=== PATIENT | male | born 1930 | race Caucasian/White ===

== ENCOUNTER 2019-07-18 10:36 | Inpatient (IN) ==
[2019-07-23] MEDS ORDERED: polyethylene glycoL 3350 17 GM POWD.PACK PO PRN (16:41)
[2019-07-23] MEDS ORDERED: Ibuprofen 600 MG TABLET PO PRN (16:41)
[2019-07-23] MEDS ORDERED: Benzonatate 100 MG CAPSULE PO PRN (16:41)
[2019-07-23] MEDS ORDERED: Nitroglycerin 0.4 MG TAB.SUBL SL PRN (16:41)
[2019-07-23] MEDS ORDERED: Nystatin POWDER 30 GM BOTTLE TP PRN (16:41)
[2019-07-23 18:10] LABS: INR 2.4; Prothrombin Time 27.1 Seconds (9.4-12.1)
[2019-07-23] MEDS ORDERED: *HR* Warfarin 2.5 MG TABLET PO SCH (18:45)
[2019-07-23] MEDS: Furosemide 40 MG TABLET PO SCH (19:34)
[2019-07-23] MEDS: Saline Nasal Spray 44 ML BOTTLE NS SCH (21:30)
[2019-07-23] MEDS: Eucerin Cream 57 GM TUBE TP SCH (21:32)
[2019-07-23] MEDS: hydrALAZINE 25 MG TABLET PO SCH (23:10)
[2019-07-23] MEDS: Melatonin 3 MG TABLET PO PRN (23:28)
[2019-07-24 05:45] LABS: Basophils % 0.5 %; Eosinophils # 0.4 K/mcL (0.0-0.6); Eosinophils % 5.7 %; Hemoglobin 7.1 g/dL (12.9-16.9); Immature Granulocytes % 0.3 % (0-4); Mean Corpuscular HGB Conc 32.3 g/dL (31.6-35.5); Mean Corpuscular Hemoglobin 32.4 pg (28.0-33.3); Mean Corpuscular Volume 100.5 fL (83.0-100.0); Mean Platelet Volume 9.2 fL (9.4-12.4); Monocytes # 0.8 K/mcL (0.0-1.3); Neutrophils # 4.3 K/mcL (1.6-8.9); Nucleated Red Blood Cells 1.1 /100 WBC (0); Platelet Count 182 K/mcL (140-400); Red Blood Count 2.19 M/mcL (4.19-5.50); Red Cell Distribution Width 26.2 % (11.5-14.5); Segmented Neutrophils % 65.5 %; White Blood Count 6.5 K/mcL (4.3-11.1)
[2019-07-24 05:49] LABS: INR 2.4; Prothrombin Time 27.5 Seconds (9.4-12.1)
[2019-07-24 06:04] LABS: Albumin 3.7 g/dL (3.5-5.7); Albumin/Globulin Ratio 1.9 (1.1-2.2); Bilirubin,Total 2.4 mg/dL (0.3-1.0); Calcium 8.6 mg/dL (8.6-10.3); Magnesium 2.7 mg/dL (1.6-2.6); Phosphorous 4.1 mg/dL (2.7-4.5); Total Protein 5.7 g/dL (6.4-8.9)
[2019-07-24 06:22] LABS: Anisocytosis 3+ (Not Present); Macrocytosis Present (Not Present); Platelet Estimate Normal (Normal); Poikilocytosis 1+ (Not Present)
[2019-07-24 06:23] LABS: Hypochromasia Present (Not Present); Schistocytes 1+ (Not Present)
[2019-07-24] MEDS: hydrALAZINE 25 MG TABLET PO SCH ×2 (09:24→16:18)
[2019-07-24] MEDS: Folic Acid 1 MG TABLET PO SCH (09:24)
[2019-07-24] MEDS: Metoprolol XL (24 HR) Succ 50 MG TAB.ER.24H PO SCH (09:24)
[2019-07-24] MEDS: Sennosides 8.6 MG TABLET PO SCH (09:24)
[2019-07-24] MEDS: Cyanocobalamin (B-12) 1,000 MCG TABLET PO SCH (09:24)
[2019-07-24] MEDS: Aspirin 81 MG TAB.CHEW PO SCH (09:24)
[2019-07-24] MEDS: Furosemide 40 MG TABLET PO SCH ×2 (09:24→16:18)
[2019-07-24] MEDS: Eucerin Cream 57 GM TUBE TP SCH ×2 (09:25→12:07)
[2019-07-24] MEDS: Saline Nasal Spray 44 ML BOTTLE NS SCH ×3 (09:25→20:05)
[2019-07-24] MEDS: *HR* Warfarin 2.5 MG TABLET PO SCH (16:18)
[2019-07-24] MEDS: Acetaminophen 325 MG TABLET PO PRN (21:00)
[2019-07-25] MEDS: hydrALAZINE 25 MG TABLET PO SCH ×3 (00:14→17:13)
[2019-07-25 05:34] LABS: Hematocrit 22.4 % (37.5-50.1); Hemoglobin 7.3 g/dL (12.9-16.9); Mean Corpuscular HGB Conc 32.6 g/dL (31.6-35.5); Mean Corpuscular Hemoglobin 32.4 pg (28.0-33.3); Mean Corpuscular Volume 99.6 fL (83.0-100.0); Mean Platelet Volume 9.5 fL (9.4-12.4); Platelet Count 195 K/mcL (140-400); Red Blood Count 2.25 M/mcL (4.19-5.50); Red Cell Distribution Width 25.8 % (11.5-14.5); White Blood Count 6.1 K/mcL (4.3-11.1)
[2019-07-25 05:37] LABS: INR 2.8; Prothrombin Time 31.3 Seconds (9.4-12.1)
[2019-07-25 05:50] LABS: Calcium 8.4 mg/dL (8.6-10.3); Magnesium 2.7 mg/dL (1.6-2.6)
[2019-07-25 08:31] LABS: % Iron Saturation 25 % (20-55); Iron 71 mcg/dL (65-175); Transferrin 206 mg/dL (203-362)
[2019-07-25] MEDS: Metoprolol XL (24 HR) Succ 50 MG TAB.ER.24H PO SCH (08:31)
[2019-07-25] MEDS: Sennosides 8.6 MG TABLET PO SCH (08:31)
[2019-07-25 08:32] LABS: Prealbumin 9.6 mg/dL (17.0-34.0)
[2019-07-25] MEDS: Folic Acid 1 MG TABLET PO SCH (08:32)
[2019-07-25] MEDS: Furosemide 40 MG TABLET PO SCH (08:32)
[2019-07-25] MEDS: Aspirin 81 MG TAB.CHEW PO SCH (08:32)
[2019-07-25] MEDS: Cyanocobalamin (B-12) 1,000 MCG TABLET PO SCH (08:32)
[2019-07-25] MEDS: Saline Nasal Spray 44 ML BOTTLE NS SCH ×3 (08:41→19:44)
[2019-07-25 09:08] LABS: Folate > 22.3 ng/mL (3.0-16.0); Vitamin B12 > 1500 pg/mL (250-1100)
[2019-07-25] MEDS: Eucerin Cream 57 GM TUBE TP SCH ×2 (10:13→19:44)
[2019-07-25] MEDS ORDERED: *HR* Warfarin 2.5 MG TABLET PO SCH (18:00)
[2019-07-25 18:50] LABS: Bilirubin,Urine Negative (Negative); Blood,Urine Large (Negative); Clarity,Urine Slightly Cloudy (Clear); Color,Urine Yellow (Yellow); Glucose,Urine (UA) Normal (Normal); Ketones,Urine Negative (Negative); Leukocyte Esterase,Urine Negative (Negative); Nitrite,Urine Negative (Negative); Protein,Urine 100 mg/dL (Neg-Trace); Urobilinogen,Urine Normal (Normal)
[2019-07-25 19:20] LABS: Bacteria,Urine Few per hpf (None-Few); Hyaline Casts,Urine Few per lpf (None-Few); Mucus,Urine Few per lpf (Few); RBC,Urine TNTC per hpf (0-3); Squamous Epithelial Cell,Urine Few per lpf (None-Few)
[2019-07-25] MEDS: Melatonin 3 MG TABLET PO PRN (19:43)
[2019-07-25] MEDS: Acetaminophen 325 MG TABLET PO PRN (19:44)
[2019-07-26] MEDS: hydrALAZINE 25 MG TABLET PO SCH ×3 (00:13→16:09)
[2019-07-26 05:47] LABS: Hematocrit 24.2 % (37.5-50.1); Hemoglobin 7.9 g/dL (12.9-16.9); Mean Corpuscular HGB Conc 32.6 g/dL (31.6-35.5); Mean Corpuscular Hemoglobin 32.1 pg (28.0-33.3); Mean Corpuscular Volume 98.4 fL (83.0-100.0); Mean Platelet Volume 9.2 fL (9.4-12.4); Platelet Count 175 K/mcL (140-400); Red Blood Count 2.46 M/mcL (4.19-5.50); Red Cell Distribution Width 25.2 % (11.5-14.5); White Blood Count 5.5 K/mcL (4.3-11.1)
[2019-07-26 06:04] LABS: INR 2.6; Prothrombin Time 29.7 Seconds (9.4-12.1)
[2019-07-26 06:11] LABS: Albumin 3.8 g/dL (3.5-5.7); Albumin/Globulin Ratio 1.7 (1.1-2.2); Bilirubin,Total 2.9 mg/dL (0.3-1.0); Calcium 8.3 mg/dL (8.6-10.3); Globulin 2.3 g/dL (2.4-3.5); Magnesium 2.6 mg/dL (1.6-2.6); Potassium 3.9 mEq/L (3.5-5.1); Total Protein 6.1 g/dL (6.4-8.9)
[2019-07-26] MEDS: Sennosides 8.6 MG TABLET PO SCH (08:25)
[2019-07-26] MEDS: Aspirin 81 MG TAB.CHEW PO SCH (08:25)
[2019-07-26] MEDS: Metoprolol XL (24 HR) Succ 50 MG TAB.ER.24H PO SCH (08:25)
[2019-07-26] MEDS: Saline Nasal Spray 44 ML BOTTLE NS SCH ×3 (08:26→21:02)
[2019-07-26] MEDS ORDERED: Furosemide 40 MG TABLET PO SCH (09:00)
[2019-07-26] MEDS: Eucerin Cream 57 GM TUBE TP SCH ×2 (09:00→21:02)
[2019-07-26] MEDS: *HR* Warfarin 2.5 MG TABLET PO SCH (17:52)
[2019-07-26] MEDS: Acetaminophen 325 MG TABLET PO PRN (20:57)
[2019-07-27] MEDS: hydrALAZINE 25 MG TABLET PO SCH ×4 (02:12→23:57)
[2019-07-27 05:17] LABS: Hematocrit 23.8 % (37.5-50.1); Hemoglobin 7.8 g/dL (12.9-16.9); Mean Corpuscular HGB Conc 32.8 g/dL (31.6-35.5); Mean Corpuscular Hemoglobin 32.1 pg (28.0-33.3); Mean Corpuscular Volume 97.9 fL (83.0-100.0); Mean Platelet Volume 9.7 fL (9.4-12.4); Platelet Count 181 K/mcL (140-400); Red Blood Count 2.43 M/mcL (4.19-5.50); Red Cell Distribution Width 25.1 % (11.5-14.5); White Blood Count 5.8 K/mcL (4.3-11.1)
[2019-07-27 05:35] LABS: Calcium 8.4 mg/dL (8.6-10.3); Potassium 3.9 mEq/L (3.5-5.1)
[2019-07-27] MEDS: Aspirin 81 MG TAB.CHEW PO SCH (08:32)
[2019-07-27] MEDS: Eucerin Cream 57 GM TUBE TP SCH ×2 (08:32→22:21)
[2019-07-27] MEDS: Metoprolol XL (24 HR) Succ 50 MG TAB.ER.24H PO SCH (08:32)
[2019-07-27] MEDS: Saline Nasal Spray 44 ML BOTTLE NS SCH ×3 (08:32→22:22)
[2019-07-27] MEDS: Sennosides 8.6 MG TABLET PO SCH (08:51)
[2019-07-27] MEDS ORDERED: Sennosides 8.6 MG TABLET PO PRN (09:02)
[2019-07-27] MEDS ORDERED: Warfarin perPT PO PRN (18:00)
[2019-07-27] MEDS ORDERED: *HR* Warfarin 5 MG TABLET PO ONE (18:00)
[2019-07-27] MEDS: Acetaminophen 325 MG TABLET PO PRN (22:19)
[2019-07-28 06:39] LABS: Hematocrit 23.9 % (37.5-50.1); Hemoglobin 7.8 g/dL (12.9-16.9); Mean Corpuscular HGB Conc 32.6 g/dL (31.6-35.5); Mean Corpuscular Hemoglobin 32.1 pg (28.0-33.3); Mean Corpuscular Volume 98.4 fL (83.0-100.0); Mean Platelet Volume 9.8 fL (9.4-12.4); Platelet Count 170 K/mcL (140-400); Red Blood Count 2.43 M/mcL (4.19-5.50); Red Cell Distribution Width 24.7 % (11.5-14.5); White Blood Count 4.9 K/mcL (4.3-11.1)
[2019-07-28 06:49] LABS: Calcium 8.5 mg/dL (8.6-10.3); Potassium 4.2 mEq/L (3.5-5.1)
[2019-07-28 07:04] LABS: Prothrombin Time 34.6 Seconds (9.4-12.1)
[2019-07-28] MEDS: hydrALAZINE 25 MG TABLET PO SCH ×2 (07:50→16:43)
[2019-07-28] MEDS: Aspirin 81 MG TAB.CHEW PO SCH (07:50)
[2019-07-28] MEDS: Metoprolol XL (24 HR) Succ 50 MG TAB.ER.24H PO SCH (07:50)
[2019-07-28] MEDS: Saline Nasal Spray 44 ML BOTTLE NS SCH ×3 (07:50→19:56)
[2019-07-28] MEDS: Eucerin Cream 57 GM TUBE TP SCH ×2 (07:50→19:56)
[2019-07-28] MEDS ORDERED: 0.9 % Sodium Chloride 1,000 ML IVC SCH (09:00)
[2019-07-28] MEDS ORDERED: *HR* Warfarin 2.5 MG TABLET PO ONE (18:00)
[2019-07-28] MEDS: Acetaminophen 325 MG TABLET PO PRN (19:55)
[2019-07-28] MEDS: Melatonin 3 MG TABLET PO PRN (19:56)
[2019-07-29] MEDS: hydrALAZINE 25 MG TABLET PO SCH ×3 (00:11→16:49)
[2019-07-29 04:54] LABS: Hematocrit 22.7 % (37.5-50.1); Hemoglobin 7.5 g/dL (12.9-16.9); Mean Corpuscular Hemoglobin 32.2 pg (28.0-33.3); Mean Corpuscular Volume 97.4 fL (83.0-100.0); Mean Platelet Volume 9.7 fL (9.4-12.4); Platelet Count 162 K/mcL (140-400); Red Blood Count 2.33 M/mcL (4.19-5.50); Red Cell Distribution Width 24.6 % (11.5-14.5); White Blood Count 5.3 K/mcL (4.3-11.1)
[2019-07-29 05:00] LABS: INR 3.3; Prothrombin Time 38.1 Seconds (9.4-12.1)
[2019-07-29 05:11] LABS: Calcium 8.3 mg/dL (8.6-10.3); Magnesium 2.6 mg/dL (1.6-2.6); Potassium 4.4 mEq/L (3.5-5.1)
[2019-07-29] MEDS: Saline Nasal Spray 44 ML BOTTLE NS SCH ×3 (09:11→19:44)
[2019-07-29] MEDS: Metoprolol XL (24 HR) Succ 50 MG TAB.ER.24H PO SCH (09:11)
[2019-07-29] MEDS: Eucerin Cream 57 GM TUBE TP SCH ×2 (09:11→19:44)
[2019-07-29] MEDS: Aspirin 81 MG TAB.CHEW PO SCH (09:11)
[2019-07-29] MEDS ORDERED: 0.9 % Sodium Chloride 1,000 ML IVC SCH (12:00)
[2019-07-29] MEDS: Melatonin 3 MG TABLET PO PRN (19:43)
[2019-07-29] MEDS: Acetaminophen 325 MG TABLET PO PRN (19:44)
[2019-07-30] MEDS: hydrALAZINE 25 MG TABLET PO SCH ×3 (00:47→17:13)
[2019-07-30 05:32] LABS: Hematocrit 23.4 % (37.5-50.1); Hemoglobin 7.6 g/dL (12.9-16.9); Mean Corpuscular HGB Conc 32.5 g/dL (31.6-35.5); Mean Corpuscular Hemoglobin 31.9 pg (28.0-33.3); Mean Corpuscular Volume 98.3 fL (83.0-100.0); Mean Platelet Volume 9.8 fL (9.4-12.4); Platelet Count 169 K/mcL (140-400); Red Blood Count 2.38 M/mcL (4.19-5.50); Red Cell Distribution Width 24.4 % (11.5-14.5); White Blood Count 4.9 K/mcL (4.3-11.1)
[2019-07-30 05:33] LABS: INR 2.7; Prothrombin Time 31.1 Seconds (9.4-12.1)
[2019-07-30 05:44] LABS: Calcium 8.3 mg/dL (8.6-10.3); Potassium 4.3 mEq/L (3.5-5.1)
[2019-07-30] MEDS: Saline Nasal Spray 44 ML BOTTLE NS SCH ×3 (08:28→20:22)
[2019-07-30] MEDS: Aspirin 81 MG TAB.CHEW PO SCH (08:29)
[2019-07-30] MEDS: Eucerin Cream 57 GM TUBE TP SCH ×2 (08:29→20:22)
[2019-07-30] MEDS: Metoprolol XL (24 HR) Succ 50 MG TAB.ER.24H PO SCH (08:29)
[2019-07-30] MEDS ORDERED: *HR* Warfarin 5 MG TABLET PO ONE (18:00)
[2019-07-30] MEDS: Melatonin 3 MG TABLET PO PRN (20:21)
[2019-07-30] MEDS: Acetaminophen 325 MG TABLET PO PRN (20:21)
[2019-07-31] MEDS: hydrALAZINE 25 MG TABLET PO SCH ×4 (02:26→23:49)
[2019-07-31 05:36] LABS: Basophils % 0.6 %; Eosinophils # 0.2 K/mcL (0.0-0.6); Eosinophils % 2.8 %; Hematocrit 22.6 % (37.5-50.1); Hemoglobin 7.5 g/dL (12.9-16.9); Immature Granulocytes % 0.4 % (0-4); Lymphocytes # 0.8 K/mcL (0.6-4.6); Lymphocytes % 14.4 %; Mean Corpuscular HGB Conc 33.2 g/dL (31.6-35.5); Mean Corpuscular Hemoglobin 32.6 pg (28.0-33.3); Mean Corpuscular Volume 98.3 fL (83.0-100.0); Monocytes # 0.8 K/mcL (0.0-1.3); Monocytes % 15.7 %; Neutrophils # 3.5 K/mcL (1.6-8.9); Nucleated Red Blood Cells 4.6 /100 WBC (0); Platelet Count 167 K/mcL (140-400); Red Cell Distribution Width 24.4 % (11.5-14.5); Segmented Neutrophils % 66.1 %; White Blood Count 5.3 K/mcL (4.3-11.1)
[2019-07-31 05:50] LABS: Calcium 8.3 mg/dL (8.6-10.3); Potassium 4.4 mEq/L (3.5-5.1)
[2019-07-31] MEDS: Acetaminophen 325 MG TABLET PO PRN ×2 (08:35→21:19)
[2019-07-31] MEDS: Metoprolol XL (24 HR) Succ 50 MG TAB.ER.24H PO SCH (08:35)
[2019-07-31] MEDS: Aspirin 81 MG TAB.CHEW PO SCH (08:36)
[2019-07-31] MEDS: Eucerin Cream 57 GM TUBE TP SCH ×2 (08:38→21:18)
[2019-07-31] MEDS: Saline Nasal Spray 44 ML BOTTLE NS SCH ×3 (08:38→21:19)
[2019-07-31] MEDS ORDERED: *HR* Warfarin 3 MG TABLET PO ONE ×2 (09:03→18:00)
[2019-07-31] MEDS: Melatonin 3 MG TABLET PO PRN (21:19)
[2019-08-01 05:46] LABS: INR 2.9; Prothrombin Time 32.5 Seconds (9.4-12.1)
[2019-08-01] MEDS: Aspirin 81 MG TAB.CHEW PO SCH (07:42)
[2019-08-01] MEDS: Metoprolol XL (24 HR) Succ 50 MG TAB.ER.24H PO SCH (07:42)
[2019-08-01] MEDS: Eucerin Cream 57 GM TUBE TP SCH ×2 (07:42→19:55)
[2019-08-01] MEDS: Saline Nasal Spray 44 ML BOTTLE NS SCH ×3 (07:42→19:55)
[2019-08-01] MEDS: hydrALAZINE 25 MG TABLET PO SCH ×2 (07:42→18:04)
[2019-08-01 09:13] LABS: Basophils % 0.4 %; Eosinophils # 0.1 K/mcL (0.0-0.6); Eosinophils % 2.7 %; Hematocrit 22.9 % (37.5-50.1); Hemoglobin 7.6 g/dL (12.9-16.9); Immature Granulocytes % 0.9 % (0-4); Lymphocytes # 0.5 K/mcL (0.6-4.6); Lymphocytes % 11.8 %; Mean Corpuscular HGB Conc 33.2 g/dL (31.6-35.5); Mean Corpuscular Hemoglobin 32.8 pg (28.0-33.3); Mean Corpuscular Volume 98.7 fL (83.0-100.0); Mean Platelet Volume 10.1 fL (9.4-12.4); Monocytes # 0.5 K/mcL (0.0-1.3); Monocytes % 11.8 %; Neutrophils # 3.2 K/mcL (1.6-8.9); Nucleated Red Blood Cells 5.8 /100 WBC (0); Platelet Count 166 K/mcL (140-400); Red Blood Count 2.32 M/mcL (4.19-5.50); Red Cell Distribution Width 25.1 % (11.5-14.5); Segmented Neutrophils % 72.4 %; White Blood Count 4.5 K/mcL (4.3-11.1)
[2019-08-01 09:24] LABS: Calcium 8.4 mg/dL (8.6-10.3); Potassium 4.4 mEq/L (3.5-5.1)
[2019-08-01] MEDS ORDERED: 0.9 % Sodium Chloride 1,000 ML IVC SCH (12:00)
[2019-08-01] MEDS ORDERED: *HR* Warfarin 2.5 MG TABLET PO ONE (18:00)
[2019-08-02] MEDS: hydrALAZINE 25 MG TABLET PO SCH ×2 (00:31→08:20)
[2019-08-02] MEDS: Acetaminophen 325 MG TABLET PO PRN (02:15)
[2019-08-02 05:43] LABS: Basophils % 0.6 %; Eosinophils # 0.1 K/mcL (0.0-0.6); Eosinophils % 2.5 %; Hematocrit 24.1 % (37.5-50.1); Hemoglobin 7.9 g/dL (12.9-16.9); Immature Granulocytes % 0.6 % (0-4); Lymphocytes # 0.9 K/mcL (0.6-4.6); Lymphocytes % 16.6 %; Mean Corpuscular HGB Conc 32.8 g/dL (31.6-35.5); Mean Corpuscular Hemoglobin 32.4 pg (28.0-33.3); Mean Corpuscular Volume 98.8 fL (83.0-100.0); Monocytes # 0.7 K/mcL (0.0-1.3); Monocytes % 12.6 %; Neutrophils # 3.5 K/mcL (1.6-8.9); Nucleated Red Blood Cells 3.6 /100 WBC (0); Platelet Count 156 K/mcL (140-400); Red Blood Count 2.44 M/mcL (4.19-5.50); Segmented Neutrophils % 67.1 %; White Blood Count 5.3 K/mcL (4.3-11.1)
[2019-08-02 05:46] LABS: INR 2.8; Prothrombin Time 32.1 Seconds (9.4-12.1)
[2019-08-02 06:05] LABS: Calcium 8.5 mg/dL (8.6-10.3); Potassium 4.5 mEq/L (3.5-5.1)
[2019-08-02] MEDS: Saline Nasal Spray 44 ML BOTTLE NS SCH (08:20)
[2019-08-02] MEDS: Aspirin 81 MG TAB.CHEW PO SCH (08:20)
[2019-08-02] MEDS: Metoprolol XL (24 HR) Succ 50 MG TAB.ER.24H PO SCH (08:20)
[2019-08-02] MEDS: Eucerin Cream 57 GM TUBE TP SCH (08:20)
[2019-08-02] MEDS ORDERED: *HR* Warfarin 2.5 MG TABLET PO ONE (18:00)
== END 2019-08-02 14:37 | disposition home health service (06) | DRG 291 ==
LOC: INPGRE 07-23 17:31
PROVIDERS: ADMIT Family Medicine; ATTEND Family Medicine